=== PATIENT | male | born 1985 | race Caucasian/White ===

== ENCOUNTER → 2018-02-18 | Outpatient (CLI) | payer OTHER ==
--- NOTE | 2018-02-18 16:20 | Diagnostic Imaging Report ---
PROCEDURE:TESTICULAR ULTRASOUND COMPARISON:None. INDICATIONS:OTHER SPECIFIED DISORDERS OF THE MALE GENITAL ORGANS TECHNIQUE: Qureshi-scale and color Doppler images of the testicles and scrotal contents were obtained. Duplex imaging with spectral waveform analysis was performed of the testicular arteries and veins. FINDINGS: RIGHT SCROTUM: Testicle: 3.8 x 2.5 x 3.5 cm. Homogeneous in echotexture without mass. Normal arterial and venous spectral Doppler waveforms. Normal color Doppler signal throughout. Epididymal head: 1.3 x 1.1 x 1 cm. Homogeneous in echotexture without mass. No increased vascularity. Hydrocele: None Varicocele: None LEFT SCROTUM: Testicle: 3.4 x 1.8 x 2.7 cm. Homogeneous in echotexture without mass. Normal arterial and venous spectral Doppler waveforms. Normal color Doppler signal throughout. Epididymal head: 1.6 x 1.4 x 0.9 cm. Homogeneous in echotexture without mass. No increased vascularity. A 1.7 x 1 x 2.3 cm anechoic collection superior to the left testicle may represent exophytic epididymal head cysts or an encysted hydrocele. Hydrocele: None Varicocele: None No bulges in the inguinal regions to suggest inguinal hernia. CONCLUSION: 1. Cystic structure superior to the left testicle may represent exophytic epididymal cysts or an encysted hydrocele. 2. Otherwise, unremarkable scrotal ultrasound exam. 1. Dictated by: Dmitriy Lewis M.D. on 02/18/2018 at 16:20 Electronically approved by: Dmitriy Lewis M.D. on 02/18/2018 at 16:20
--- NOTE | 2018-02-18 16:20 | Diagnostic Imaging Report ---
PROCEDURE:TESTICULAR DOPPLER ULTRASOUND COMPARISON:None. INDICATIONS:OTHER SPECIFIED DISORDERS OF THE MALE GENITAL ORGANS TECHNIQUE: Qureshi-scale and color Doppler images of the testicles and scrotal contents were obtained. Duplex imaging with spectral waveform analysis was performed of the testicular arteries and veins. FINDINGS: See same day testicular ultrasound for full report. CONCLUSION: See same day testicular ultrasound for full report. Dictated by: Dmitriy Lewis M.D. on 02/18/2018 at 16:21 Electronically approved by: Dmitriy Lewis M.D. on 02/18/2018 at 16:21
== END ==
LOC: US 12:17
PROVIDERS: ATTEND Internal Medicine
DX: N50.9 Disorder of male genital organs, unspecified (principal)
CPT/HCPCS: 76870; 93976